=== PATIENT | male | born 1965 | race Caucasian/White ===

== ENCOUNTER 2019-10-07 15:06 | Emergency (ER) | payer BC ==
[~2019-10-07] VITALS: Ht 172.7 cm; Wt 93.0 kg
[2019-10-07 15:53] LABS: BASOPHILS # (AUTO) 0.1 (0.0-0.1); BASOPHILS % 0.4 % (0.0-1.0); EOSINOPHILS # (AUTO) 0.1 (0.0-0.4); HEMATOCRIT 45.9 % (38.2-49.6); HEMOGLOBIN 15.4 g/dL (14.0-18.0); LYMPHOCYTES # (AUTO) 1.3 (1.0-3.2); LYMPHOCYTES % 9.5 % (18.0-39.1); MEAN CORPUSCULAR HEMOGLOBIN 29.3 pg (28-32); MEAN CORPUSCULAR HGB CONC 33.6 g/dL (31-35); MEAN CORPUSCULAR VOLUME 87.3 fL (81-99); MONOCYTES # (AUTO) 1.1 (0.2-0.8); MONOCYTES % 7.7 % (4.4-11.3); PLATELET COUNT 284 x10e3/uL (140-360); RED BLOOD COUNT 5.26 x10e6/uL (4.3-5.7); RED CELL DISTRIBUTION WIDTH 12.5 % (11.7-14.4)
[2019-10-07] MEDS ORDERED: DIATRIZOATE MEGL/DIATRIZOA SOD 30 ML BTL PO ONE (16:00)
[2019-10-07 16:03] LABS: ALANINE AMINOTRANSFERASE 26 IU/L (0-55); ALBUMIN 4.3 g/dL (3.5-5.0); ALBUMIN/GLOBULIN RATIO 1.3 (0.8-2.0); ALKALINE PHOSPHATASE 79 IU/L (40-150); ANION GAP 15.8 mmol/L (8-16); BLOOD UREA NITROGEN 19 mg/dL (7-26); BUN/CREATININE RATIO 16 (6-25); CALCIUM 9.4 mg/dL (8.4-10.2); CARBON DIOXIDE 25 mmol/L (22-29); CHLORIDE 102 mmol/L (98-107); CREATININE, SERUM 1.18 mg/dL (0.72-1.25); EST GLOMERULAR FILTRATION RATE > 60 ML/MIN (60-); GLUCOSE 100 mg/dL (74-118); POTASSIUM 3.8 mmol/L (3.5-5.1); SODIUM 139 mmol/L (136-145)
[2019-10-07 16:08] LABS: CLARITY,URINE HAZY (CLEAR); COLOR,URINE YELLOW (YELLOW); LEUKOCYTE ESTERASE ,URINE NEGATIVE (NEGATIVE)
[2019-10-07 16:09] LABS: BILIRUBIN,URINE SMALL (NEGATIVE); KETONES,URINE NEGATIVE (NEGATIVE); NITRITE,URINE NEGATIVE (NEGATIVE); PROTEIN,URINE DIPSTICK NEGATIVE (NEGATIVE); URINE UROBILINOGEN 0.2 mg/dL (0.2 - 1)
[2019-10-07 16:12] LABS: BACTERIA,URINE FEW /HPF; EPITHELIAL CELLS,URINE FEW /LPF; RBC,URINE 0-5 /HPF (0-5); WBC,URINE (MAN) 0-5 /HPF (0-5)
--- NOTE | 2019-10-07 18:39 | Diagnostic Imaging Report ---
EXAM: CT Abdomen and Pelvis WITHOUT contrast INDICATION: Stone protocol. COMPARISON: None. TECHNIQUE: Abdomen and pelvis were scanned utilizing a multidetector helical scanner from the lung base to the pubic symphysis without administration of IV contrast. Absence of intravenous contrast decreases sensitivity for detection of focal lesions and vascular pathology. Coronal and sagittal reformations were obtained. Routine protocol was performed. IV CONTRAST: None ORAL CONTRAST: None COMPLICATIONS: None RADIATION DOSE: Total DLP: 701.04 mGy*cm Estimated effective dose: (DLP x 0.015 x size factor) mSv CTDIvol has been reviewed. It is below the limits set by the Radiation Protocol Committee (RPC). Dose modulation, iterative reconstruction, and/or weight based adjustment of the mA/kV was utilized to reduce the radiation dose to as low as reasonably achievable. FINDINGS: LINES and TUBES: None. LOWER THORAX: Unremarkable HEPATOBILIARY: No focal hepatic lesions. No biliary ductal dilation. GALLBLADDER: No radio-opaque stones or sludge. No wall thickening. SPLEEN: No splenomegaly. PANCREAS: No focal masses or ductal dilatation. ADRENALS: No adrenal nodules KIDNEYS/URETERS: No hydronephrosis. No cystic or solid mass lesions. No stones. GI TRACT: There is diverticulosis coli with mucosal thickening and peripheral fat stranding of the sigmoid colon compatible with diverticulitis. No drainable fluid collection or adjacent free air. No abnormal distention, wall thickening, or evidence of bowel obstruction. Appendix is normal. PELVIC ORGANS/BLADDER: Unremarkable. LYMPH NODES: No lymphadenopathy. VESSELS: Unremarkable. PERITONEUM / RETROPERITONEUM: No free air or fluid. BONES: Unremarkable. SOFT TISSUES: Unremarkable. IMPRESSION: 1. Acute uncomplicated diverticulitis. 2. Normal bilateral kidneys. Signed by: Audi Sanchez MD on 10/07/2019 6:35 PM
--- NOTE | 2019-10-07 18:48 | Emergency Department Note ---
History of Present Illnes History of Present Illness Chief Complaint: Abdominal Complaints History of Present Illness This is a 54 year old male PAIN SUPRAPUBIC. DENIES UTI S/S. STATES HX OF DIVERTICULITIS AND THINKS ITS THE SAME EVENT. PT AAOX4. AMBULATORY. NO FEVERS, NO N/V/D. LAST COLONOSCOPY 2 YRS AGO. NO SIGN. FINDINGS. MD JORDAN IN TRIAGE. TENDER ON RLQ. . Historian: Patient Arrival Mode: Car Digital Advertising Analyst Required: No Onset (how long ago): day(s) Location: lower abd Quality: pain Radiation: Reports non-radiation Severity: moderate Onset quality: gradual Timing of current episode: constant Progression: unchanged Chronicity: recurrent Context: Denies recent illness Relieving factors: none Exacerbating factors: none Associated symptoms: Reports denies other symptoms Treatments prior to arrival: none Past Medical/Family History Physician Review I have reviewed the patient's past medical and family history. Any updates have been documented here. Past Medical History Recent Fever: No Clinical Suspicion of Infectio: No New/Unexplained Change in Ment: No Past Medical History: Kidney Stones, GERD Other Medical History: DIVERTICULITIS. Other Surgery: LEFT SHOULDER Social History Smoking Cessation: Never Smoker Counseling Performed: No Alcohol Use: None Any Illegal Drug Use: No Physically hurt or threatened: No Family History Family history of heart diseas: No Other Any Pre-Existing Lines (PICC,: No Review of Systems Review of Systems Constitutional: Reports no symptoms EENTM: Reports no symptoms Cardiovascular: Reports no symptoms Respiratory: Reports no symptoms Gastrointestinal: Reports as per HPI Genitourinary: Reports no symptoms Musculoskeletal: Reports no symptoms Integumentary: Reports no symptoms Neurological: Reports no symptoms Psychological: Reports no symptoms Endocrine: Reports no symptoms Hematological/Lymphatic: Reports no symptoms Physical Exam Related Data Allergies: Coded Allergies: penicillin G (Verified Allergy, Unknown, 03/07/09) Triage Vital Signs Vital Signs Date Time Temp Pulse Resp B/P (MAP) Pulse Ox O2 Delivery O2 Flow Rate FiO2 10/07/19 15:12 99.0 98 16 129/95 99 Room Air Vital signs reviewed: Yes Physical Exam CONSTITUTIONAL Constitutional: Present well-developed, Present well-nourished HENT HENT: Present normocephalic, Present atraumatic, Present oropharynx clear/moist, Present nose normal HENT L/R: Present left ext ear normal, Present right ext ear normal EYES Eyes: Reports PERRL, Reports conjunctivae normal NECK Neck: Present ROM normal PULMONARY Pulmonary: Present effort normal, Present breath sounds normal CARDIOVASCULAR Cardiovascular: Present regular rhythm, Present heart sounds normal, Present capillary refill normal, Present normal rate GASTROINTESTINAL Abdominal: Present soft, Present bowel sounds normal, Present tender (MOD TENDERNESS SUPRAPUBIC AND RLQ WITHOUT R/G); Absent guarding, Absent rebound GENITOURINARY Genitourinary: Present exam deferred SKIN Skin: Present warm, Present dry MUSCULOSKELETAL Musculoskeletal: Present ROM normal NEUROLOGICAL Neurological: Present alert, Present oriented x 3, Present no gross motor or sensory deficits PSYCHOLOGICAL Psychological: Present mood/affect normal, Present judgement normal Results Laboratory Result Diagram: 10/07/19 1518 10/07/19 1518 Laboratory Laboratory Tests Test 10/07/19 15:18 White Blood Count 13.57 x10e3/uL (4.8-10.8) Red Blood Count 5.26 x10e6/uL (4.3-5.7) Hemoglobin 15.4 g/dL (14.0-18.0) Hematocrit 45.9 % (38.2-49.6) Mean Corpuscular Volume 87.3 fL (81-99) Mean Corpuscular Hemoglobin 29.3 pg (28-32) Mean Corpuscular Hemoglobin Concent 33.6 g/dL (31-35) Red Cell Distribution Width 12.5 % (11.7-14.4) Platelet Count 284 x10e3/uL (140-360) Neutrophils (%) (Auto) 81.0 % (38.7-80.0) Lymphocytes (%) (Auto) 9.5 % (18.0-39.1) Monocytes (%) (Auto) 7.7 % (4.4-11.3) Eosinophils (%) (Auto) 1.0 % (0.0-6.0) Basophils (%) (Auto) 0.4 % (0.0-1.0) Neutrophils # (Auto) 11.0 (2.1-6.9) Lymphocytes # (Auto) 1.3 (1.0-3.2) Monocytes # (Auto) 1.1 (0.2-0.8) Eosinophils # (Auto) 0.1 (0.0-0.4) Basophils # (Auto) 0.1 (0.0-0.1) Absolute Immature Granulocyte (auto 0.05 x10e3/uL (0-0.1) Urine Color Yellow (YELLOW) Urine Clarity Hazy (CLEAR) Urine pH 5.5 (5 - 7) Urine Specific [place] >=1.030 (1.010-1.025) Urine Protein Negative (NEGATIVE) Urine Glucose (UA) Negative (NEGATIVE) Urine Ketones Negative (NEGATIVE) Urine Blood Negative (NEGATIVE) Urine Nitrite Negative (NEGATIVE) Urine Bilirubin Small (NEGATIVE) Urine Urobilinogen 0.2 mg/dL (0.2 - 1) Urine Leukocyte Esterase Negative (NEGATIVE) Urine RBC 0-5 /HPF (0-5) Urine WBC 0-5 /HPF (0-5) Urine Epithelial Cells Few /LPF (NONE) Urine Bacteria Few /HPF (NONE) Sodium Level 139 mmol/L (136-145) Potassium Level 3.8 mmol/L (3.5-5.1) Chloride Level 102 mmol/L (98-107) Carbon Dioxide Level 25 mmol/L (22-29) Anion Gap 15.8 mmol/L (8-16) Blood Urea Nitrogen 19 mg/dL (7-26) Creatinine 1.18 mg/dL (0.72-1.25) Estimat Glomerular Filtration Rate > 60 ML/MIN (60-) BUN/Creatinine Ratio 16 (6-25) Glucose Level 100 mg/dL (74-118) Calcium Level 9.4 mg/dL (8.4-10.2) Total Bilirubin 1.0 mg/dL (0.2-1.2) Aspartate Amino Transf (AST/SGOT) 23 IU/L (5-34) Alanine Aminotransferase (ALT/SGPT) 26 IU/L (0-55) Alkaline Phosphatase 79 IU/L (40-150) Total Protein 7.7 g/dL (6.5-8.1) Albumin 4.3 g/dL (3.5-5.0) Globulin 3.4 g/dL (2.3-3.5) Albumin/Globulin Ratio 1.3 (0.8-2.0) Lab results reviewed: Yes Imaging Imaging results reviewed: Yes Assessment & Plan Medical Decision Making MDM CBC, CHEM, UA, CT ABD/PELVIS - R/O UTI, URETEROLITHIASIS, DIVERTICULITIS Reassessment Reassessment PT WANTS TO GO HOME - VANNESA/IRINA, RODERICK, F/U PCP WEDNESDAY, RTED SX'S WORSEN Assessment & Plan Final Impression: (1) Diverticulitis Depart Disposition: HOME, SELF-CARE Last Vital Signs Date Time Temp Pulse Resp B/P (MAP) Pulse Ox O2 Delivery O2 Flow Rate FiO2 10/07/19 15:12 99.0 98 16 129/95 99 Room Air Medications in the ED Diatrizoate Meglum/ Diatrizoate Sod 30 ml STK-MED ONCE PO ; Start 10/07/19 at 16:00; Stop 10/07/19 at 15:54; Status DC CORNELIO ALCAZAR MD Oct 07, 2019 18:48
[2019-10-07] MEDS ORDERED: DICYCLOMINE HCL 20 MG/2 ML VIAL IM ONE (19:00)
[2019-10-07 19:14] VITALS: BP 107/74
== END 2019-10-07 19:19 | disposition home or self-care (01) ==
LOC: ER 15:36
DX: R10.813 Right lower quadrant abdominal tenderness (principal); K57.92 Diverticulitis of intestine, part unspecified, without perforation or abscess without bleeding; K21.9 Gastro-esophageal reflux disease without esophagitis; Z87.442 Personal history of urinary calculi
CPT/HCPCS: 36415; 74176; 80053; 81001; 85025; 99284; J0500

== ENCOUNTER 2020-12-18 05:10 | Inpatient (IN) | payer BC ==
[~2020-12-18] VITALS: Ht 170.2 cm; Wt 94.3 kg
[2020-12-18] MEDS ORDERED: SODIUM CHLORIDE 0.9% 1000ML 1,000 ML IV SCH (05:30)
[2020-12-18] MEDS ORDERED: Morphine 4mg Syringe 4 MG/ML INJ IV ONE ×2 (05:30→07:30)
[2020-12-18] MEDS ORDERED: SODIUM CHLORIDE 0.9% 1000ML 1,000 ML ONE (05:42)
[2020-12-18] MEDS ORDERED: Morphine 2mg Syringe 2 MG/ML SYR ONE (05:44)
[2020-12-18 06:03] LABS: BASOPHILS % 0.4 % (0.0-1.0); EOSINOPHILS # (AUTO) 0.1 (0.0-0.4); HEMATOCRIT 43.8 % (38.2-49.6); HEMOGLOBIN 14.7 g/dL (14.0-18.0); LYMPHOCYTES # (AUTO) 1.2 (1.0-3.2); LYMPHOCYTES % 12.1 % (18.0-39.1); MEAN CORPUSCULAR HEMOGLOBIN 29.3 pg (28-32); MEAN CORPUSCULAR HGB CONC 33.6 g/dL (31-35); MEAN CORPUSCULAR VOLUME 87.4 fL (81-99); MONOCYTES # (AUTO) 0.7 (0.2-0.8); MONOCYTES % 7.2 % (4.4-11.3); NEUTROPHILS # (AUTO) 8.1 (2.1-6.9); NEUTROPHILS % 78.9 % (38.7-80.0); PLATELET COUNT 285 x10e3/uL (140-360); RED BLOOD COUNT 5.01 x10e6/uL (4.3-5.7); RED CELL DISTRIBUTION WIDTH 12.8 % (11.7-14.4)
[2020-12-18 06:18] LABS: CLARITY,URINE CLEAR (CLEAR); COLOR,URINE YELLOW (YELLOW); KETONES,URINE NEGATIVE (NEGATIVE); LEUKOCYTE ESTERASE ,URINE NEGATIVE (NEGATIVE); NITRITE,URINE NEGATIVE (NEGATIVE); PROTEIN,URINE DIPSTICK NEGATIVE (NEGATIVE); URINE UROBILINOGEN 0.2 mg/dL (0.2 - 1)
[2020-12-18 06:26] LABS: BACTERIA,URINE RARE /HPF; EPITHELIAL CELLS,URINE RARE /LPF; RBC,URINE 0-5 /HPF (0-5); WBC,URINE (MAN) 0-5 /HPF (0-5)
[2020-12-18 06:45] LABS: ALBUMIN 3.9 g/dL (3.5-5.0); ALBUMIN/GLOBULIN RATIO 1.2 (0.8-2.0); ANION GAP 12.8 mmol/L (8-16); CALCIUM 8.3 mg/dL (8.4-10.2); CREATININE, SERUM 0.78 mg/dL (0.72-1.25); POTASSIUM 3.8 mmol/L (3.5-5.1)
[2020-12-18] MEDS ORDERED: IOPAMIDOL 370 MG/ML 200 ML INFUS..BTL INJ ONE (07:04)
[2020-12-18] MEDS ORDERED: SODIUM CHLORIDE 0.9% 50ML 50 ML ONE ×2 (07:04→08:25)
[2020-12-18] MEDS ORDERED: METRONIDAZOLE 500MG/NS 100ML 100 ML IV STA (08:03)
[2020-12-18] MEDS ORDERED: CEFTRIAXONE 1 GM in SODIUM CHLORIDE 0.9% 50ML 50 ML IV ONE (08:15)
[2020-12-18] MEDS ORDERED: CEFTRIAXONE 1 GM VIAL IV ONE (08:15)
[2020-12-18] MEDS ORDERED: CEFTRIAXONE 1 GM VIAL ONE (08:26)
[2020-12-18 09:14] VITALS: BP 150/80
[2020-12-18] MEDS ORDERED: ALBUTEROL/IPRATROPIUM 3 ML NEB NEB PRN (09:45)
[2020-12-18] MEDS: CIPROFLOXACIN 400 MG/D5W 200ML 200 ML IV SCH ×2 (10:11→22:30)
[2020-12-18] MEDS: ACETAMINOPHEN/CODEINE 300MG - 30MG TAB PO PRN ×3 (10:11→19:25)
[2020-12-18] MEDS ORDERED: PANTOPRAZOLE SOD 40 MG TABEC PO ONE (10:30)
[2020-12-18 10:36] VITALS: BP 150/80
[2020-12-18 10:38] VITALS: BP 150/80
[2020-12-18] MEDS ORDERED: XYZAL5 MG PO (11:14)
[2020-12-18] MEDS ORDERED: SINGULAIR10 MG PO (11:14)
[2020-12-18] MEDS ORDERED: ADVAIR 250-501 EACH INH (11:14)
[2020-12-18] MEDS ORDERED: NEXIUM20 MG PO (11:14)
[2020-12-18] MEDS: DEXTROSE 5%/0.9% SOD CHL 1,000 ML IV SCH (11:26)
[2020-12-18] MEDS: METRONIDAZOLE 500MG/NS 100ML 100 ML IV SCH ×2 (14:26→20:51)
[2020-12-18 16:00] VITALS: BP 143/88
[2020-12-18 19:59] VITALS: BP 142/75
[2020-12-18] MEDS: SALMETEROL/FLUTICASONE 250/50 INH SCH (20:50)
[2020-12-18] MEDS: ACETAMINOPHEN 325 MG TAB PO PRN (20:55)
[2020-12-18 21:00] VITALS: BP 142/75
[2020-12-18] MEDS ORDERED: Morphine 2mg Syringe 2 MG/ML SYR IV STA (21:29)
[2020-12-19] VITALS (10 sets, daily range): BP systolic 129–160; BP diastolic 78–92
[2020-12-19] MEDS: ACETAMINOPHEN/CODEINE 300MG - 30MG TAB PO PRN ×3 (03:03→16:05)
[2020-12-19] MEDS: ACETAMINOPHEN 325 MG TAB PO PRN (04:09)
[2020-12-19] MEDS: DEXTROSE 5%/0.9% SOD CHL 1,000 ML IV SCH ×2 (04:09→12:25)
[2020-12-19 04:57] LABS: BASOPHILS % 0.4 % (0.0-1.0); EOSINOPHILS # (AUTO) 0.2 (0.0-0.4); EOSINOPHILS % 1.9 % (0.0-6.0); HEMATOCRIT 40.1 % (38.2-49.6); HEMOGLOBIN 13.6 g/dL (14.0-18.0); LYMPHOCYTES # (AUTO) 0.7 (1.0-3.2); LYMPHOCYTES % 8.8 % (18.0-39.1); MEAN CORPUSCULAR HEMOGLOBIN 29.2 pg (28-32); MEAN CORPUSCULAR HGB CONC 33.9 g/dL (31-35); MEAN CORPUSCULAR VOLUME 86.1 fL (81-99); MONOCYTES # (AUTO) 0.8 (0.2-0.8); MONOCYTES % 9.6 % (4.4-11.3); NEUTROPHILS # (AUTO) 6.5 (2.1-6.9); NEUTROPHILS % 78.9 % (38.7-80.0); PLATELET COUNT 226 x10e3/uL (140-360); RED BLOOD COUNT 4.66 x10e6/uL (4.3-5.7); RED CELL DISTRIBUTION WIDTH 12.7 % (11.7-14.4)
[2020-12-19 05:22] LABS: ALBUMIN 3.2 g/dL (3.5-5.0); ANION GAP 15.6 mmol/L (8-16); CALCIUM 7.8 mg/dL (8.4-10.2); CREATININE, SERUM 0.79 mg/dL (0.72-1.25); POTASSIUM 3.6 mmol/L (3.5-5.1)
[2020-12-19] MEDS: METRONIDAZOLE 500MG/NS 100ML 100 ML IV SCH ×3 (06:24→21:06)
[2020-12-19] MEDS: SALMETEROL/FLUTICASONE 250/50 INH SCH ×2 (07:12→19:35)
[2020-12-19] MEDS: PANTOPRAZOLE SOD 40 MG TABEC PO SCH (08:11)
[2020-12-19] MEDS: CIPROFLOXACIN 400 MG/D5W 200ML 200 ML IV SCH ×2 (09:52→22:32)
[2020-12-19] MEDS ORDERED: Morphine 2mg Syringe 2 MG/ML SYR IV PRN (11:45)
[2020-12-19] MEDS: HYDROCODONE/APAP 5MG-325MG TAB PO PRN (19:45)
[2020-12-19] MEDS: DOCUSATE SODIUM 100 MG CAP PO SCH (22:31)
[2020-12-20] VITALS (9 sets, daily range): BP systolic 117–165; BP diastolic 76–93
[2020-12-20] MEDS: HYDROCODONE/APAP 5MG-325MG TAB PO PRN ×2 (01:36→12:58)
[2020-12-20] MEDS: ACETAMINOPHEN 325 MG TAB PO PRN ×3 (04:03→23:31)
[2020-12-20 05:04] LABS: BASOPHILS % 0.3 % (0.0-1.0); EOSINOPHILS # (AUTO) 0.3 (0.0-0.4); EOSINOPHILS % 3.8 % (0.0-6.0); HEMATOCRIT 39.4 % (38.2-49.6); HEMOGLOBIN 13.2 g/dL (14.0-18.0); LYMPHOCYTES # (AUTO) 0.9 (1.0-3.2); LYMPHOCYTES % 12.5 % (18.0-39.1); MEAN CORPUSCULAR HEMOGLOBIN 29.6 pg (28-32); MEAN CORPUSCULAR HGB CONC 33.5 g/dL (31-35); MEAN CORPUSCULAR VOLUME 88.3 fL (81-99); MONOCYTES # (AUTO) 0.6 (0.2-0.8); MONOCYTES % 8.5 % (4.4-11.3); NEUTROPHILS # (AUTO) 5.1 (2.1-6.9); NEUTROPHILS % 74.6 % (38.7-80.0); PLATELET COUNT 240 x10e3/uL (140-360); RED BLOOD COUNT 4.46 x10e6/uL (4.3-5.7); RED CELL DISTRIBUTION WIDTH 12.6 % (11.7-14.4)
[2020-12-20 05:30] LABS: ALBUMIN/GLOBULIN RATIO 0.9 (0.8-2.0); ANION GAP 13.6 mmol/L (8-16); CALCIUM 8.2 mg/dL (8.4-10.2); CREATININE, SERUM 0.79 mg/dL (0.72-1.25); POTASSIUM 3.6 mmol/L (3.5-5.1)
[2020-12-20] MEDS: METRONIDAZOLE 500MG/NS 100ML 100 ML IV SCH ×3 (06:25→21:59)
[2020-12-20] MEDS: DEXTROSE 5%/0.9% SOD CHL 1,000 ML IV SCH ×2 (06:35→16:36)
[2020-12-20] MEDS: SALMETEROL/FLUTICASONE 250/50 INH SCH ×2 (06:50→07:23)
[2020-12-20] MEDS: PANTOPRAZOLE SOD 40 MG TABEC PO SCH (08:10)
[2020-12-20] MEDS: POLYETHYLENE GLYCOL 3350 17 GM PACK PO SCH (08:10)
[2020-12-20] MEDS: CIPROFLOXACIN 400 MG/D5W 200ML 200 ML IV SCH ×2 (10:08→20:49)
[2020-12-20] MEDS: DOCUSATE SODIUM 100 MG CAP PO SCH (20:49)
[2020-12-21 04:18] VITALS: BP 139/96
[2020-12-21] MEDS: METRONIDAZOLE 500MG/NS 100ML 100 ML IV SCH (05:18)
[2020-12-21 07:12] VITALS: BP 150/95
[2020-12-21 07:13] VITALS: BP 150/95
[2020-12-21] MEDS: SALMETEROL/FLUTICASONE 250/50 INH SCH (07:14)
[2020-12-21] MEDS: PANTOPRAZOLE SOD 40 MG TABEC PO SCH (07:49)
[2020-12-21] MEDS: POLYETHYLENE GLYCOL 3350 17 GM PACK PO SCH (07:50)
[2020-12-21] MEDS ORDERED: CIPRO250 MG PO (08:53)
[2020-12-21] MEDS ORDERED: METRONIDAZOLE500 MG PO (09:02)
== END 2020-12-21 09:45 | disposition home or self-care (01) | DRG 392 ==
LOC: ER 05:26 → ERHOLD 08:28 → MERGE 08:28 → IMCU 09:23 → OBSVTOIN 12-19 16:04
PROVIDERS: ADMIT Internal Medicine; ATTEND Internal Medicine
DX: K57.20 Diverticulitis of large intestine with perforation and abscess without bleeding (principal); K21.9 Gastro-esophageal reflux disease without esophagitis; Z20.822 Contact with and (suspected) exposure to COVID-19; Z88.0 Allergy status to penicillin
CPT/HCPCS: 36415; 74177; 80053; 81001; 83690; 85025; 96361; 99284; G0378; J0696; J2270; J7030; J7042; Q9967; U0002

== ENCOUNTER 2024-09-05 06:06 | Inpatient (IN) | payer BC ==
[~2024-09-05] VITALS: Ht 170.2 cm; Wt 94.3 kg
[~2024-09-05 06:06] MED LIST: ADVAIR 250-501 EACH INH; CIPRO250 MG PO; METRONIDAZOLE500 MG PO; NEXIUM20 MG PO; SINGULAIR10 MG PO; XYZAL5 MG PO
[2024-09-05 06:09] VITALS: TEMP 98.4
[2024-09-05 06:29] LABS: BASOPHILS % 0.3 % (0.0-1.0); EOSINOPHILS % 1.9 % (0.0-6.0); LYMPHOCYTES % 8.0 % (18.0-39.1); MONOCYTES % 6.2 % (4.4-11.3); NEUTROPHILS % 83.2 % (38.7-80.0); RED CELL DISTRIBUTION WIDTH 13.2 % (11.7-14.4)
[2024-09-05] MEDS: SODIUM CHLORIDE 0.9% 1000ML 1,000 ML IV ONE (06:40)
[2024-09-05] MEDS: ONDANSETRON HCL INJ 2MG/ML 2ML 2 MG/ML VIAL IV STA (06:40)
[2024-09-05] MEDS: Morphine 2mg Syringe 2 MG/ML SYR IV ONE (06:40)
[2024-09-05 07:17] LABS: EST GLOMERULAR FILTRATION RATE 102.0 ML/MIN (>=60)
[2024-09-05] MEDS ORDERED: IOPAMIDOL 370 MG/ML 100 ML INFUS..BTL INJ ONE (08:02)
[2024-09-05] MEDS: KETOROLAC TROMETHAMINE 30 MG/ML VIAL IV STA (08:30)
[2024-09-05 08:55] LABS: LEUKOCYTE ESTERASE ,URINE NEGATIVE (NEGATIVE); PROTEIN,URINE DIPSTICK NEGATIVE (NEGATIVE); URINE UROBILINOGEN 0.2 mg/dL (0.2 - 1)
[2024-09-05 09:00] VITALS: PULSE 72; RESP 16
[2024-09-05 09:30] LABS: EPITHELIAL CELLS,URINE FEW /LPF; WBC,URINE (MAN) 0-5 /HPF (0-5)
[2024-09-05] MEDS: CIPROFLOXACIN 400 MG/D5W 200ML 200 ML IV SCH (09:45)
[2024-09-05] MEDS: METRONIDAZOLE 500MG/NS 100ML 100 ML IV SCH (09:45)
[2024-09-05] MEDS ORDERED: SODIUM CHLORIDE FLUSH 10 ML SYR INJ PRN (09:45)
[2024-09-05] MEDS ORDERED: ONDANSETRON HCL INJ 2MG/ML 2ML 2 MG/ML VIAL IV PRN (09:45)
[2024-09-05 11:00] VITALS: BP 138/84; PULSE 70; RESP 20; TEMP 98; O2SAT 100
[2024-09-05] MEDS: Morphine 4mg INJECTION 4 MG/ML INJ IV PRN (11:09)
[2024-09-05 11:34] VITALS: BP 138/84; PULSE 70; RESP 20; TEMP 98; O2SAT 100
[2024-09-05 15:46] VITALS: BP 129/75; PULSE 72; RESP 21; TEMP 98.6; O2SAT 99
[2024-09-05 20:00] VITALS: BP 125/79; PULSE 74; RESP 20; TEMP 97.7; O2SAT 98
[2024-09-05] MEDS: SODIUM CHLORIDE 0.9% 250ML 250 ML ONE (22:14)
[2024-09-05] MEDS: KETOROLAC TROMETHAMINE 30 MG/ML VIAL IV PRN (22:28)
[2024-09-06] VITALS (8 sets, daily range): BP systolic 125–147; BP diastolic 74–88; PULSE 59–78; RESP 18–21; TEMP 97.9–98.6; O2SAT 98–100
[2024-09-06 06:21] LABS: BASOPHILS % 0.3 % (0.0-1.0); EOSINOPHILS % 5.0 % (0.0-6.0); LYMPHOCYTES % 12.5 % (18.0-39.1); MONOCYTES % 8.6 % (4.4-11.3); NEUTROPHILS % 73.0 % (38.7-80.0); RED CELL DISTRIBUTION WIDTH 13.3 % (11.7-14.4)
[2024-09-06 06:44] LABS: EST GLOMERULAR FILTRATION RATE 103.0 ML/MIN (>=60)
[2024-09-07] VITALS (7 sets, daily range): BP systolic 136–147; BP diastolic 78–88; PULSE 64–72; RESP 18; TEMP 97.5–98.5; O2SAT 97–100
[2024-09-07] MEDS: HYDRALAZINE HCL 20 MG/ML VIAL IV ONE (04:46)
[2024-09-07] MEDS: SODIUM CHLORIDE 0.9% 100 ML ONE (06:32)
[2024-09-07] MEDS: MONTELUKAST SODIUM 10 MG TAB PO SCH (09:27)
[2024-09-08 03:21] VITALS: BP 139/90; PULSE 75; RESP 17; TEMP 97.3; O2SAT 98
[2024-09-08 07:47] VITALS: BP 158/88; PULSE 71; RESP 18; TEMP 98.3; O2SAT 100
[2024-09-08 08:09] VITALS: BP 158/88; PULSE 71; RESP 18; TEMP 98.3; O2SAT 100
[2024-09-08 14:01] VITALS: BP 160/89; PULSE 68; RESP 18; TEMP 98.2; O2SAT 98
== END 2024-09-08 14:20 | disposition home or self-care (01) | DRG 392 ==
LOC: ER 06:10 → ERHOLD 09:36 → MED/SURG3 10:47 → OBSVTOIN 09-06 16:36
PROVIDERS: ADMIT Internal Medicine; ATTEND Internal Medicine
DX: K57.32 Diverticulitis of large intestine without perforation or abscess without bleeding (principal); I10 Essential (primary) hypertension; J45.909 Unspecified asthma, uncomplicated; K76.0 Fatty (change of) liver, not elsewhere classified; N20.0 Calculus of kidney; N40.0 Benign prostatic hyperplasia without lower urinary tract symptoms; Z71.3 Dietary counseling and surveillance; Z68.32 Body mass index [BMI] 32.0-32.9, adult; Z86.0100 Personal history of colon polyps, unspecified; Z79.899 Other long term (current) drug therapy
CPT/HCPCS: 36415; 74177; 80053; 81001; 83690; 84484; 85025; 93005; 99284; G0378; J1885; J2270; J2405; J7030; J7050; Q9967